=== PATIENT | female | born 1985 | race Caucasian/White ===

== ENCOUNTER 2017-05-04 13:51 | Emergency (ER) | payer OTHER ==
[~2017-05-04] VITALS: Ht 167.6 cm; Wt 53.5 kg
[~2017-05-04 13:51] MED LIST: ATARAX,VISTARIL50 MG PO; BACTRIM DS 8001 TAB PO; CARBIDOPA/LEVOD1 TA1 PO; CLEOCIN HCL150 MG PO; CLEOCIN150 MG PO; CLINDAMYCIN HC300 MG PO; CLINDAMYCIN150 MG PO; FERROUS SULFATE27 MG PO; FLOMAX0.4 MG PO; HYDROCODONE BIT1 T11 PO; KEFLEX500 MG PO; KETOROLAC10 MG PO; MOBIC15 MG PO; MOTRIN800 MG PO; NAPROSYN500 MG PO; NKHM; PRENATAL1 TA1 PO; Peridex 473 ML473 ML PO; TRAMADOL HCL50 MG PO; TYLENOL EXTRA500 MG PO; ULTRAM50 MG PO; ZOFRAN 4 MG ED2 TAB PO; ZOFRAN4 MG PO
[2017-05-04] MEDS ORDERED: MEDROL DOSEPAK4 MG PO (16:27)
[2017-05-04] MEDS ORDERED: Motrin,Rufen800 MG PO (16:27)
[2017-05-04] MEDS ORDERED: ROBAXIN500 M1 PO (16:27)
== END 2017-05-04 16:26 | disposition home or self-care (01) ==
LOC: ED 13:51
DX: M54.40 Lumbago with sciatica, unspecified side (principal); F17.200 Nicotine dependence, unspecified, uncomplicated; F11.10 Opioid abuse, uncomplicated; Z88.0 Allergy status to penicillin; Z88.1 Allergy status to other antibiotic agents

== ENCOUNTER → 2017-12-15 | Outpatient (CLI) | payer OTHER ==
[~2017-12-15] MED LIST changes: +MEDROL DOSEPAK4 MG PO; +Motrin,Rufen800 MG PO; +ROBAXIN500 M1 PO
== END | disposition home or self-care (01) ==
LOC: RESCLI 02:03
DX: F41.9 Anxiety disorder, unspecified (principal); G47.00 Insomnia, unspecified; F17.210 Nicotine dependence, cigarettes, uncomplicated; Z71.6 Tobacco abuse counseling

== ENCOUNTER 2017-12-29 16:36 | Emergency (ER) | payer OTHER ==
[~2017-12-29] VITALS: Ht 167.6 cm; Wt 54.4 kg
[2017-12-29] MEDS ORDERED: HYDROXYZINE HCL25 M1 PO (16:48)
[2017-12-29] MEDS ORDERED: TRAZODONE50 MG PO (16:48)
== END 2017-12-29 17:56 | disposition home or self-care (01) ==
LOC: ED 16:36
DX: S05.02XA Injury of conjunctiva and corneal abrasion without foreign body, left eye, initial encounter (principal); F17.200 Nicotine dependence, unspecified, uncomplicated; F11.10 Opioid abuse, uncomplicated; Z88.0 Allergy status to penicillin; Z88.1 Allergy status to other antibiotic agents; X58.XXXA Exposure to other specified factors, initial encounter; Y93.01 Activity, walking, marching and hiking; Y92.89 Other specified places as the place of occurrence of the external cause; Y99.9 Unspecified external cause status

== ENCOUNTER → 2018-01-11 | Outpatient (CLI) | payer OTHER ==
[~2018-01-11] MED LIST changes: +HYDROXYZINE HCL25 M1 PO; +TRAZODONE50 MG PO
== END | disposition home or self-care (01) ==
LOC: RESCLI 02:22
DX: G47.00 Insomnia, unspecified (principal); F41.9 Anxiety disorder, unspecified; F32.1 Major depressive disorder, single episode, moderate; F17.210 Nicotine dependence, cigarettes, uncomplicated; Z71.6 Tobacco abuse counseling; Z88.0 Allergy status to penicillin

== ENCOUNTER 2019-03-28 18:13 | Emergency (ER) | payer OTHER ==
[~2019-03-28] VITALS: Ht 175.2 cm; Wt 54.4 kg
[2019-03-28] MEDS ORDERED: CORTISPORIN SUS10 ML OT (18:34)
[2019-03-29] MEDS ORDERED: CEPHALEXIN500 M1 PO (19:23)
[2019-03-29] MEDS ORDERED: OFLOXACIN OTIC5 ML OPH (19:23)
== END 2019-03-28 18:36 | disposition home or self-care (01) ==
LOC: ED 18:13
DX: H60.92 Unspecified otitis externa, left ear (principal); F17.200 Nicotine dependence, unspecified, uncomplicated; Z88.0 Allergy status to penicillin; Z88.1 Allergy status to other antibiotic agents; Z79.899 Other long term (current) drug therapy

== ENCOUNTER 2019-03-29 18:51 | Emergency (ER) | payer OTHER ==
[~2019-03-29] VITALS: Ht 167.6 cm; Wt 54.4 kg
[~2019-03-29 18:51] MED LIST changes: +CORTISPORIN SUS10 ML OT
[2019-03-29] MEDS ORDERED: CEPHALEXIN500 M1 PO (19:23)
[2019-03-29] MEDS ORDERED: OFLOXACIN OTIC5 ML OPH (19:23)
== END 2019-03-29 19:36 | disposition home or self-care (01) ==
LOC: ED 18:51
DX: H60.92 Unspecified otitis externa, left ear (principal); Z72.0 Tobacco use; Z88.0 Allergy status to penicillin; Z88.1 Allergy status to other antibiotic agents